=== PATIENT | female | born 1950 | race Caucasian/White ===

== ENCOUNTER 2017-02-16 06:04 | Emergency (ER) | payer MEDICARE ==
[~2017-02-16] VITALS: Ht 167.6 cm; Wt 101.1 kg
[~2017-02-16 06:04] MED LIST: LORA0.5T PO; OMEP-110 PO; SUCR1ORA5 PO; ZOLP12.52 PO
[2017-02-16] MEDS ORDERED: OXYC-302 PO (06:34)
[2017-02-16] MEDS ORDERED: LORazepam 2 MG/ML, 1ML IVPush ONE (07:00)
[2017-02-16] MEDS ORDERED: MORPHINE SULFATE 4 MG/ML, 1ML IVPush PRN (07:00)
[2017-02-16] MEDS ORDERED: ONDANSETRON 2MG/ML, 2ML IVPush ONE (07:00)
[2017-02-16] MEDS ORDERED: morphine SULFATE 10 MG/ML, 1ML ONE (07:12)
[2017-02-16] MEDS ORDERED: ONDANSETRON 2MG/ML, 2ML ONE (07:13)
[2017-02-16] MEDS ORDERED: LORazepam 2 MG/ML, 1ML ONE (07:13)
[2017-02-16 07:21] LABS: HEMATOCRIT 41.4 % (34.6-47.8)
[2017-02-16 07:29] LABS: BLOOD UREA NITROGEN 17 mg/dL (7-18)
[2017-02-16 08:33] VITALS: BP 132/76
== END 2017-02-16 08:36 | disposition home or self-care (01) ==
LOC: ED 08:05
DX: F41.1 Generalized anxiety disorder (principal); G89.18 Other acute postprocedural pain; M25.512 Pain in left shoulder
CPT/HCPCS: 36415; 80048; 82040; 85025; 96374; 96375; 99284; J2060; J2405